=== PATIENT | male | born 1990 | race Two or more races ===

== ENCOUNTER 2020-09-03 16:38 | Emergency (ER) | payer OTHER ==
[~2020-09-03] VITALS: Ht 175.3 cm; Wt 59.1 kg
[2020-09-03] MEDS ORDERED: ondansetron/PF 4mg/2ml inj IV ONE (17:05)
[2020-09-03] MEDS ORDERED: normal saline 1000ml 1,000 ML IV ONE (17:05)
[2020-09-03 17:28] LABS: BASOPHILS % (AUTO) 0.2 % (0-1); EOSINOPHILS # (AUTO) 0.1 X10'3 (0-0.9); EOSINOPHILS % (AUTO) 0.5 % (0-6); HEMATOCRIT 39.7 % (42.0-52.0); HEMOGLOBIN 13.1 g/dl (14.0-17.9); LYMPHOCYTES # (AUTO) 2.7 X10'3 (1.1-4.8); MEAN CORPUSCULAR HEMOGLOBIN 27.5 PG (27.0-31.0); MEAN CORPUSCULAR HGB CONC 32.9 g/dL (33.0-36.5); MEAN CORPUSCULAR VOLUME 83.6 FL (78-98); MEAN PLATELET VOLUME 6.7 FL (7.4-10.4); MONOCYTES # (AUTO) 0.9 X10'3 (0-0.9); MONOCYTES % (AUTO) 8.1 % (2-12); NEUTROPHILS # (AUTO) 7.1 X10'3 (1.8-7.7); NEUTROPHILS % (AUTO) 66.2 % (42-75); PLATELET COUNT 308 X10'3 (140-440); RED BLOOD COUNT 4.75 X10'6 (4.70-6.10); RED CELL DISTRIBUTION WIDTH 14.2 % (11.5-14.5); WHITE BLOOD COUNT 10.8 X10'3 (4.5-11.0)
[2020-09-03 17:43] LABS: ALANINE AMINOTRANSFERASE 13 U/L (12-78); ALBUMIN 3.9 G/DL (3.4-5.0); ALBUMIN/GLOBULIN RATIO 1.1 (1.1-1.5); ALKALINE PHOSPHATASE 92 IU/L (46-116); AMYLASE 61 U/L (25-115); ANION GAP 9 (8-16); ASPARTATE AMINO TRANSFERASE 15 U/L (10-37); BILIRUBIN,TOTAL 0.4 MG/DL (0.1-1.0); BLOOD UREA NITROGEN 14 MG/DL (7-18); BUN/CREATININE RATIO 14.7 (5.4-32.0); CALCIUM 9.2 MG/DL (8.5-10.1); CHLORIDE 102 MMOL/L (99-107); CREATININE 0.95 MG/DL (0.60-1.10); GLUCOSE 100 MG/DL (70-104); LIPASE 76 U/L (73-393); POTASSIUM 3.4 MMOL/L (3.5-5.1); SODIUM 140 MMOL/L (135-145); TOTAL PROTEIN 7.3 G/DL (6.4-8.2); eGFR > 90 ML/MIN
[2020-09-03] MEDS ORDERED: potassium Cl 20 mEq SR tablet PO ONE (18:05)
[2020-09-03] MEDS ORDERED: potassium Cl 10 mEq/100mL bag IV ONE (18:25)
[2020-09-03] MEDS ORDERED: metoclopramide 5 mg/ml inj IV ONE (18:25)
[2020-09-03] MEDS ORDERED: magnesium 2GM in 50ml NS 50 ML IV ONE (18:25)
[2020-09-03] MEDS ORDERED: diphenhydrAMINE 50 mg/ml inj IV ONE (18:50)
[2020-09-03] MEDS ORDERED: proCHLORperazine 10 MG/2 ml inj IV ONE (18:50)
[2020-09-03] MEDS ORDERED: pantoprazole 40 MG vial IV ONE (18:55)
[2020-09-03 19:11] LABS: CLARITY,URINE CLEAR (Clear); COLOR,URINE YELLOW (Yellow); GLUCOSE, URINE NEGATIVE (Neg); KETONES,URINE NEGATIVE (Neg); LEUKOCYTE ESTERASE ,URINE NEGATIVE (Neg); NITRITES, URINE NEGATIVE (Neg); OCCULT BLOOD,URINE NEGATIVE (Neg); PROTEIN,URINE NEGATIVE (Neg); UA COLLECTION TYPE NON-SPECIFIED; UROBILINOGEN,URINE 0.2 E.U/dL (0.2-1.0)
[2020-09-03] MEDS ORDERED: mag hydrox/Alum hydrox/simeth 30ml oral suspension PO ONE (19:30)
[2020-09-03] MEDS ORDERED: LIDOcaine Viscous 15ml cup MM ONE (19:30)
[2020-09-03 19:31] LABS: MAGNESIUM 2.2 MG/DL (1.5-2.4)
[2020-09-03] MEDS ORDERED: ONDA4TAB6 PO (19:47)
[2020-09-03 20:20] VITALS: BP 100/56
== END 2020-09-03 20:28 | disposition home or self-care (01) ==
LOC: ER 16:39
DX: R11.2 Nausea with vomiting, unspecified (principal); R10.31 Right lower quadrant pain; R10.32 Left lower quadrant pain; F12.90 Cannabis use, unspecified, uncomplicated; Z79.899 Other long term (current) drug therapy
CPT/HCPCS: 36415; 74176; 80053; 81003; 82150; 83690; 83735; 85025; 96365; 96366; 96368; 96375; 99284; C9113; J0780; J1200; J2405; J2765; J3475; J3480; J7030